=== PATIENT | male | born 1950 | race Caucasian/White ===

== ENCOUNTER 2020-09-28 13:07 | Outpatient (CLI) | payer MEDICARE, OTHER ==
--- NOTE | 2020-09-28 13:41 | RAD ---
EXAM: XR Lumbar Spine Min 4 View DATE: 09/28/2020 2:00 PM INDICATION: Low back pain and right leg pain COMPARISON: Lumbar radiograph dated January 28, 2006. FINDING: There are 5 lumbar type vertebra. There is worsening moderate to severe disc degenerative d isease at L5-S1. There is mild worsening disc degenerative disease at L3-4 and L4-5. There is kktc-[id number] facet osteoarthrosis at L4-5 and L5-S1. Spinal alignment is within normal limits. Ve rtebral body heights are normal. SI joints are normal appearing. IMPRESSION:Worsening [id number] lumbar spondylosis most pronounced at L5-S1.
[2020-09-28] MEDS ORDERED: Magnevist 469MG/ML 20 ML VIAL ONE (14:56)
--- NOTE | 2020-09-28 19:50 | MRI ---
MRI OF THE LUMBAR SPINE WITH AND WITHOUT CONTRAST: 09/28/20 INDICATIONS: Low back pain. Remote history of lumbar surgery. No comparison. FINDINGS: Lumbar vertebrae maintain normal height and alignment. There are degenerative disc changes and loss o f disc space at L4-5 and L5-S1. The other disc spaces are relatively well preserved. No significant disc bulge or disc protrusion seen at L1-2, L2-3, or L3-4 levels. There is mild facet arthrosis at these levels; however, no central canal or foraminal stenosis. At L4-5, mild loss of disc space. Very mild disc bulge abuts the anterior thecal sac. Very mild facet hypertrophy. No significant central canal or foraminal stenosis. L5-S1: Loss of disc space. Mild posterior disc bulge abuts the thecal sac. Mild facet arthrosis and h ypertrophy. No significant central canal stenosis. Mild bilateral foraminal narrowing secondary to di sc bulge and facet hypertrophy encroaching into both foramina. IMPRESSION: 1. Degenerative disc changes at L4-5 and L5-s1 as described. 2. Evidence of bilateral renal parapelvic and cortical cysts. No evidence of enhancing renal mas s seen on the postcontrast study. POS: AGW
== END 2020-09-28 13:08 | disposition home or self-care (01) ==
LOC: TBSIIMAG 13:07
PROVIDERS: ATTEND Surgery
DX: M54.5 Low back pain (principal); M79.606 Pain in leg, unspecified; M47.817 Spondylosis without myelopathy or radiculopathy, lumbosacral region; M47.816 Spondylosis without myelopathy or radiculopathy, lumbar region; M51.36 Other intervertebral disc degeneration, lumbar region; M51.37 Other intervertebral disc degeneration, lumbosacral region; N28.1 Cyst of kidney, acquired
CPT/HCPCS: 72110; 72158; A9579

== ENCOUNTER 2021-01-26 07:55 | Day surgery (SDC) | payer MEDICARE, OTHER ==
[2021-01-25 10:42] VITALS: BMI 25.7
[2021-01-26] MEDS ORDERED: HYDROmorphone 0.5 MG/0.5 ML SYRINGE ONE (09:27)
[2021-01-26] MEDS ORDERED: Fentanyl 100 MCG/2 ML VIAL ONE ×2 (09:27→11:44)
[2021-01-26] MEDS ORDERED: Thrombin 5000 UNITS/5 ML VIAL ONE (09:29)
[2021-01-26] MEDS ORDERED: Lidocaine 1% PF 5 ML VIAL ONE (09:43)
[2021-01-26] MEDS ORDERED: Rocuronium Bromide 10 MG/ML (10ML VIAL) ONE (09:43)
[2021-01-26] MEDS ORDERED: Dexamethasone 20 MG/5 ML VIAL ONE (09:43)
[2021-01-26] MEDS ORDERED: PHENYLEPHRINE-NS 100 MCG/ML 10 ML SYRINGE ONE (09:43)
[2021-01-26] MEDS ORDERED: PROPOFOL 200 MG/20 ML VIAL ONE (09:43)
[2021-01-26] MEDS ORDERED: Ketorolac Tromethamine 30 MG/ML VIAL ONE (09:43)
[2021-01-26] MEDS ORDERED: Ondansetron PF 4 MG/2 ML Vial ONE (09:43)
[2021-01-26] MEDS ORDERED: Glycopyrrolate 0.2 MG/ML 5 ML SYRINGE ONE (09:43)
[2021-01-26] MEDS ORDERED: ePHEDrine 50 MG/ML VIAL ONE (09:43)
[2021-01-26] MEDS ORDERED: SUGAMMADEX SODIUM 200 MG/2 ML VIAL ONE (11:26)
--- NOTE | 2021-01-26 12:28 | RAD ---
Lateral radiograph of lumbar spine: 01/26/2021 COMPARISON: None HISTORY: Localization for surgery, L4-5 FINDINGS: A lateral radiograph is provided. Intraoperative instruments are seen posterior to the L4-5 level (assuming 5 lumbar type vertebral bodies). Linear metallic structure overlies the intervertebral disc at L4-5 via a posterior approach. IMPRESSION: Intraoperative imaging as above.
--- NOTE | 2021-01-26 14:23 | OP ---
DATE OF PROCEDURE: 01/26/2021 LOCATION: OR 5. CHROMIUM PLATER: Mary Baires PA-C PREPROCEDURE DIAGNOSES: Low back and right leg pain with right L5 nerve root compression. POSTPROCEDURE DIAGNOSES: Low back and right leg pain with right L5 nerve root compression. PROCEDURES PERFORMED: 1. Right L4-L5 hemilaminotomy, foraminotomy, and diskectomy. 2. Use of operative microscope for microdissection. DESCRIPTION OF PROCEDURE: After informed consent was obtained from the patient, the patient was brought to the OR. Proper patient, pause, and identification were carried out. He was placed under excellent general endotracheal anesthesia and positioned prone on the OR table. All appropriate points were padded. We identified the L4-L5 dorsal spines and lamina. A linear diana was made over this area. This region was sterilely cleansed, prepared, and draped. Proper patient, pause, and identification were carried out. The wound was then opened with combination of sharp, monopolar, and blunt dissection. The right L4-L5 jose-laminas were exposed. Localization film confirmed our area of interest. We then performed a right L4-L5 hemilaminotomy, foraminotomy. The microscope was brought in for microdissection. A right L4-L5 diskectomy was performed. The wound was copiously irrigated. We had excellent decompression of the right L5 nerve root. Copious irrigation occurred throughout as did maximizing hemostasis. The wound was then closed in anatomic layers following sprinkling of vancomycin powder. The patient emerged from anesthesia. Job ID: [id number]
[2021-01-27] MEDS ORDERED: Non-Formulary Item 1 EACH (Garlic [Garlic] 1,000 MG Capsule) PO SCH (09:00)
== END 2021-01-26 13:25 | disposition home or self-care (01) ==
LOC: SDC 07:55
PROVIDERS: ATTEND Surgery
PROC: 01NB0ZZ Release Lumbar Nerve, Open Approach (ICD-10-PCS; principal; 2021-01-26)
DX: M54.16 Radiculopathy, lumbar region (principal); G95.20 Unspecified cord compression; Z79.82 Long term (current) use of aspirin; Z79.899 Other long term (current) drug therapy
CPT/HCPCS: 72020; J0690; J1100; J1170; J1885; J2405; J2704; J3010; J3370; J3490